=== PATIENT | female | born 1985 | race Caucasian/White ===

== ENCOUNTER 2019-09-07 00:46 | Outpatient (CLI) | payer MEDICAID ==
[~2019-09-07] VITALS: Ht 160 cm; Wt 65.7 kg
--- NOTE | 2019-09-07 00:55 | NUR ---
ELBERT MATT presented to unit via ambulatory from ED, accompanied by s.o., with c/o CONTRACTIONS. ELBERT MATT weighed, gowned, voided, and to bed. EFHM and TOCO applied, VS taken. ELBERT MATT oriented to bed controls, call light, TV, heat, and A/C controls.
[2019-09-07 01:13] VITALS: BP 125/63
[2019-09-07 01:17] VITALS: BP 125/63
[2019-09-07 02:00] VITALS: BP 125/63
[2019-09-07 02:04] LABS: BILIRUBIN,URINE NEGATIVE (NEGATIVE); CLARITY,URINE CLEAR; COLOR,URINE YELLOW; GLUCOSE, URINE (UA) NEGATIVE (NEGATIVE); KETONES,URINE NEGATIVE (NEGATIVE); LEUKOCYTE ESTERASE ,URINE NEGATIVE (NEGATIVE); NITRITE,URINE NEGATIVE (NEGATIVE); PROTEIN,URINE NEGATIVE (NEGATIVE)
[2019-09-07 02:18] LABS: BACTERIA,URINE TRACE /HPF; TRICHOMONAS,URINE FEW /HPF
[2019-09-07] MEDS ORDERED: metroNIDAZOLE 500 MG (FLAGYL) TAB ONE (02:34)
[2019-09-07] MEDS ORDERED: metroNIDAZOLE 500 MG (FLAGYL) TAB PO ONE (02:45)
[2019-09-07] MEDS ORDERED: METR500T PO (06:57)
--- NOTE | 2019-09-07 07:10 | NUR ---
Discharge packet given and explained, understanding voiced by pt and Pt ambulatory off unit at this time accompanied by s/o. no ss distress. 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
[2019-09-08] MEDS ORDERED: PREN-142 PO (03:48)
[2019-09-08] MEDS ORDERED: SERT50TA9 PO (03:48)
--- NOTE | 2019-09-10 08:23 | Physician Query-Final Dx ---
Clinic Account Progress/Dx Physician Query: Please give diagnosis Please include # weeks gestation Date of Service Sep 07, 2019 at 00:46 GEOFFREY BUTLER Sep 10, 2019 08:23
== END 2019-09-07 07:10 | disposition home or self-care (01) ==
LOC: WSo 00:46 → LDRP 00:47 → WSo 07:10
PROVIDERS: ATTEND Family Medicine
DX: O62.9 Abnormality of forces of labor, unspecified (principal); Z3A.00 Weeks of gestation of pregnancy not specified
CPT/HCPCS: 81000; 99214

== ENCOUNTER 2019-09-07 19:36 | Inpatient (IN) | payer MEDICAID ==
[2019-09-07] VITALS (35 sets, daily range): BP systolic 83–147; BP diastolic 41–79
[~2019-09-07] VITALS: Ht 160 cm; Wt 65.2 kg
[~2019-09-07 19:36] MED LIST: METR500T PO
--- NOTE | 2019-09-07 19:42 | NUR ---
ELBERT MATT presented to unit via ambulation from home/ED, accompanied by SO, with c/o CONTRACTIONS. ELBERT MATT weighed, gowned, voided, and to bed. EFHM and TOCO applied, VS taken. ELBERT MATT oriented to bed controls, call light, TV, heat, and A/C controls.
[2019-09-07] MEDS ORDERED: D5 LR IV SOLUTION 1,000 ML IV ONE (20:04)
[2019-09-07] MEDS ORDERED: AMPICILLIN FOR IV USE 2,000 MG VIAL ONE (20:05)
[2019-09-07] MEDS ORDERED: AMPICILLIN FOR IV USE 1,000 MG/VIAL ONE (20:05)
[2019-09-07] MEDS ORDERED: WATER (STERILE) FOR INJECTION 20 ML ONE (20:05)
[2019-09-07] MEDS ORDERED: WATER (STERILE) FOR INJECTION 10 ML ONE (20:05)
[2019-09-07] MEDS ORDERED: D5 LR IV SOLUTION 1,000 ML IV SCH (20:34)
[2019-09-07] MEDS ORDERED: AMPICILLIN FOR IV USE 2,000 MG in WATER (STERILE) FOR INJECTION 14.8 ML IV SCH (20:34)
[2019-09-07 20:40] LABS: BASOPHILS % (AUTO) 0 % (0-10); EOSINOPHILS # (AUTO) 0.1 10^3/uL (0.0-0.3); EOSINOPHILS % (AUTO) 0 % (0-10); HEMATOCRIT 33 % (35-52); LYMPHOCYTES # (AUTO) 2.5 X 10^3 (1.0-4.0); LYMPHOCYTES % (AUTO) 15 % (12-44); MEAN CORPUSCULAR HEMOGLOBIN 29 PG (25-34); MEAN CORPUSCULAR HGB CONC 34 G/DL (32-36); MEAN CORPUSCULAR VOLUME 87 FL (80-99); MEAN PLATELET VOLUME 11.3 FL (7.4-10.4); MONOCYTES % (AUTO) 6 % (0-12); NEUTROPHILS # (AUTO) 13.3 X 10^3 (1.8-7.8); NEUTROPHILS % (AUTO) 79 % (42-75); PLATELET COUNT 313 10^3/uL (130-400); RED CELL DISTRIBUTION WIDTH 13.4 % (10.0-14.5); WHITE BLOOD COUNT 16.9 10^3/uL (4.3-11.0)
[2019-09-07] MEDS ORDERED: fentaNYL 2 mcg/ml BUPIVA 0.125 100 ML ONE (20:44)
[2019-09-07] MEDS ORDERED: fentaNYL INJECTION 100 MCG/2 ML AMP ONE (20:51)
[2019-09-07] MEDS ORDERED: BUPIVACAINE 0.25% 30 ML (SENSORCAINE) VIAL ONE (20:51)
[2019-09-07 21:16] LABS: BILIRUBIN,URINE NEGATIVE (NEGATIVE); CLARITY,URINE CLEAR; COLOR,URINE YELLOW; GLUCOSE, URINE (UA) NEGATIVE (NEGATIVE); KETONES,URINE NEGATIVE (NEGATIVE); LEUKOCYTE ESTERASE ,URINE NEGATIVE (NEGATIVE); NITRITE,URINE NEGATIVE (NEGATIVE); PH,URINE 6.5 (5-9); PROTEIN,URINE NEGATIVE (NEGATIVE)
--- OUTSIDE RECORDS SUMMARY | 2019-09-07 21:30 | XMS REPORT ---
Author Author Renay MCDANIEL Organization [facility] Address [address] [place] [address] Care Team Providers Care Groundman/Lineman Name Role Phone TAWANDA MCDANIEL Unavailable PROBLEMS Unknown Problems ALLERGIES No Known Allergies ENCOUNTERS Encounter Location Date Diagnosis [facility] [address] [facility] [id number] [place] [address] 24 Oct, 2017 Flank pain R10.9 and Acute c ystitis without hematuria N30.00 IMMUNIZATIONS No Known Immunizations SOCIAL HISTORY Never Assessed REASON FOR VISIT N/V/D on . complaing of H/A et possible fever. also right flank pain sin ce tuesday. vivi, last menstural period was 3 weeks ago PLAN OF CARE Activity Details Follow Up prn Reason: VITAL SIGNS Height 63 in 2017-11-06 Weight 114.6 lbs 2017-11-06 Temperature 97.0 degrees Fahrenheit 2017-11-06 Heart Rate 74 bpm 2017-11-06 Respiratory Rate 18 2017-11-06 BMI 20.30 kg/m2 2017-11-06 Blood pressure systolic 108 mmHg 2017-11-06 Blood pressure diastolic 68 mmHg 2017-11-06 MEDICATIONS Medication Instructions Dosage Frequency Start Date End Date Duration S tatus Bactrim DS 800-160 MG Orally Twice a day 1 tablet 12h 5 days Active Zofran ODT 4 MG Orally Every 8 hours PRN 1 tablet on the tongue and allow to dissolve 5 days Active RESULTS No Results PROCEDURES Procedure Date Ordered Result Body Site URINALYSIS, AUTO, W/O SCOPE November 06, 2017 URINE CULTURE/COLONY COUNT November 06, 2017 INSTRUCTIONS MEDICATIONS ADMINISTERED No Known Medications
--- OUTSIDE RECORDS SUMMARY | 2019-09-07 21:30 | XMS REPORT | Continuity of Care Document ---
Author Organization Unknown Address Unknown Phone Unavailable Allergies Active Description Code Type Severity Reaction Onset Reported/Identified Relationship to Patient Clinical Status Yes No Known Drug Allergies [id number] Drug Allergy Unknown N/A 09/07/2019 Medications There is no data. Problems There is no data. Procedures There is no data. Results Test Result Range CULTURE, URINE - 11/06/17 14:25 CULTURE, URINE, ROUTINE SEE NOTE NRG QNATAL - 02/27/19 16:35 NUMBER OF FETUSES? 1 NRG ADVANCED MATERNAL AGE? NO NRG ABNORMAL EMILY? NO NRG ABNORMAL US? NO NRG PERSONAL/FAM HISTORY? NO NRG INTERPRETATION SEE NOTE NRG TRISOMY 21 (T21) Negative NRG TRISOMY 18 (T18) Negative NRG TRISOMY 13 (T13) Negative NRG Y CHROMOSOME Detected NRG Y CHR. INTERPRETATION SEE NOTE NRG SEX CHROMOSOME No aneuploidy NRG SEX CHROMOSOME INTERP SEE NOTE NRG MICRODELETION Not detected NRG MICRODELETION INTERP SEE NOTE NRG GESTATIONAL AGE(IN WEEKS) 12 NRG GESTATIONAL AGE (IN DAYS) 0 NRG FRACTION 10.02% NRG LABORATORY COMMENTS SEE NOTE NRG LIMITATIONS SEE NOTE NRG SPECIFICATIONS SEE NOTE NRG METHODOLOGY SEE NOTE NRG GC/CHLAMYDIA (SWAB OR URINE)-RAPID - 01/01 14:09 CHLAMYDIA TRACHOMATIS RNA, TMA NOT DETECTED NOT DETECTED NEISSERIA GONORRHOEAE RNA, TMA NOT DETECTED NOT DETECTED COMMENT NRG GLUCOSE KYRIE 1 HOUR - 06/11/19 17:26 GLUCOSE, POSTPRANDIAL/ 1 HOUR 98 mg/dL See Note: CULTURE, GROUP B STREP (VAGINAL) - 08/19 16:54 STREPTOCOCCUS, GROUP B CULTURE SEE NOTE NRG Complete urinalysis with reflex to cultu re - 09/07/19 01:00 Urine color determination YELLOW NRG Urine clarity determination CLEAR NR G Urine pH measurement by test strip 6.0 5-9 Specific gravity of urine by test strip <= 1.016-1.022 Urine protein assay by test strip, semi-quantitative NEGATIVE NEGATIVE Urine glucose detection by automated test strip NE GATIVE NEGATIVE Erythrocytes detection in urine sediment by light micr oscopy NEGATIVE NEGATIVE Urine ketones detection by automated test strip NE GATIVE NEGATIVE Urine nitrite detection by test strip NEGATIVE NEGATIVE Urine total bilirubin detection by test strip NEGA TIVE NEGATIVE Urine urobilinogen measurement by automated test strip (mass/volume) 0.2 mg/dL < = 1.0 Urine leukocyte esterase detection by dipstick NEG ATIVE NEGATIVE Automated urine sediment erythrocyte cou nt by microscopy (number/high power field) NONE NRG Automated urine sediment leukocyte count by microscopy (number/high power field) NONE NRG Bacteria detection in urine sediment by light microsco py TRACE NRG Squamous epithelial cells detection in u rine sediment by light microscopy 2-5 NRG Crystals detection in urine sediment by light microsco py NONE NRG Casts detection in urine sediment by light microscopy NONE NRG Mucus detection in urine sediment by light microscopy NEGATIVE NRG Complete urinalysis with reflex to culture NO NRG Urine Trichomonas species detection by light microscop y FEW NRG Complete blood count (CBC) with automate d white blood cell (WBC) differential - 09/07/19 20:20 Blood leukocytes automated count (number/volume) 16.9 10*3/uL 4.3-11.0 Blood erythrocytes automated count (number/volume) 3.74 10*6/uL 4.35-5.85 Venous blood hemoglobin measurement (mass/volume) 11.0 g/dL 11.5-16.0 Blood hematocrit (volume fraction) 33 % 35-52 Automated erythrocyte mean corpuscular volume 87 [ foz_us] 80-99 Automated erythrocyte mean corpuscular h emoglobin (mass per erythrocyte) 29 pg 25-34 Automated erythrocyte mean corpuscular h emoglobin concentration measurement (mass/volume) 34 g/dL 32-36 Automated erythrocyte distribution width ratio 13. 4 % 10.0- 14.5 Automated blood platelet count (count/volume) 313 10*3/uL 130-400 Automated blood platelet mean volume measurement 11.3 [foz_us] 7.4-10.4 Automated blood neutrophils/100 leukocytes 79 % 42-75 Automated blood lymphocytes/100 leukocytes 15 % 12-44 Blood monocytes/100 leukocytes 6 % 0-12 Automated blood eosinophils/100 leukocytes 0 % 0-10 Automated blood basophils/100 leukocytes 0 % 0-10 Blood neutrophils automated count (number/volume) 13.3 10*3 1.8-7.8 Blood lymphocytes automated count (number/volume) 2.5 10*3 1.0-4.0 Blood monocytes automated count (number/volume) 1. 0 10*3 0.0-1.0 Automated eosinophil count 0.1 10*3/uL 0 .0-0.3 Automated blood basophil count (count/volume) 0.0 10*3/uL 0.0-0.1 Encounters ACCT No. Visit Date/Time Discharge Status Pt. Type Provider Facility Loc./Unit Complaint [id number] 09/03/2019 16:20:00 09/03/2019 23:59: 59 CLS Outpatient NURA HACKETT [facility] [id number] 08/20/2019 16:20:00 Document Registration [id number] 06/11/2019 16:20:00 Document Registration [id number] 03/23/2019 13:40:00 Document Registration [id number] 02/27/2019 15:30:00 Document Registration [id number] 11/06/2017 14:05:00 Document Registration [id number] 09/07/2019 00:46:00 020 07:10:00 DIS Outpatient JLUIS GRULLON MD [facility] WSo CONTRACTIONS [id number] 09/07/2019 20:06:[address] Inpatient JLUIS GRULLON MD [facility] LDRP LABOR
[2019-09-07] MEDS ORDERED: fentaNYL 2 mcg/ml BUPIVA 0.125 100 ML IV SCH (21:32)
[2019-09-07] MEDS ORDERED: LACTATED RINGERS 1,000 ML IV ONE (21:32)
[2019-09-07 21:42] LABS: AMORPHOUS SEDIMENT,UR RARE AMOR URATES /LPF; BACTERIA,URINE MODERATE /HPF
[2019-09-07] MEDS ORDERED: CATHETER FLUSH 10 ML SYR IV PRN (21:45)
[2019-09-07] MEDS ORDERED: EPIDURAL (fentaNYL 2 MCG/ML BUPIVA 0.125%)100 ML BAG EPI SCH (21:45)
[2019-09-07] MEDS ORDERED: NALOXONE 0.4 MG/ML 1 ML (NARCAN) VIAL IV PRN (21:45)
[2019-09-07] MEDS ORDERED: CATHETER FLUSH 10 ML SYR IV SCH (22:00)
--- NOTE | 2019-09-07 22:41 | History & Physical-OB ---
OB - Chief Complaint & HPI Date/Time Date of Admission: Date of Admission: Sep 07, 2019 at 20:06 Date seen by a Provider: Sep 07, 2019 Time Seen by a Provider: 22:30 Chief Complaint/History OB-Reason for Admission/Chief: Onset of Labor Hx : 1 Hx Para: 0 Expected Date of Delivery: Sep 11, 2019 Gestational Age in Weeks: 39 Gestational Age in Days: 3 Admission Nurse Assessment Rev: Yes History of Labs GBS positive vaginal/anal swab at 36 weeks Allergies and Home Medications Allergies Coded Allergies: No Known Drug Allergies (Unverified , 09/07/19) Home Medications Metronidazole 500 Mg Tablet, 500 MG PO BID Prescribed by: DEBORAH HULL on 09/07/19 0657 Patient Home Medication List Home Medication List Reviewed: Yes OB - History Hx of Present Care: Yes Ultrasounds: Normal mid trimester US Obstetrical Complications: None Medical Complications: None Patient Past Medical History no chronic medical problems Social History/Family History 2nd Hand Smoke Exposure: No OB - Admission Exam Physical Exam HEENT: Moist Membranes Heart: Rhythm Normal Lungs: Clear Abdomen: Gravid Cervical Dilatation: 5cm Effacement: 75% Station: -3 Membranes: Intact Accelerations: Accelerations Present Decelerations: Variable Decelerations Short Term Variability: Present Patcher Bowling Ball Variability: Average (6-25) Contractions on Admission: < 5 Minutes Apart Intensity: Moderate Labs Laboratory Tests Test 09/07/19 19:45 09/07/19 20:20 Range/Units Urine Color YELLOW Urine Clarity CLEAR Urine pH 6.5 5-9 Urine Specific [place] <=1.005 1.016-1.022 Urine Protein NEGATIVE NEGATIVE Urine Glucose (UA) NEGATIVE NEGATIVE Urine Ketones NEGATIVE NEGATIVE Urine Nitrite NEGATIVE NEGATIVE Urine Bilirubin NEGATIVE NEGATIVE Urine Urobilinogen 0.2 < = 1.0 MG/DL Urine Leukocyte Esterase NEGATIVE NEGATIVE Urine RBC (Auto) 3+ H NEGATIVE Urine RBC 2-5 H /HPF Urine WBC 2-5 /HPF Urine Squamous Epithelial Cells 2-5 /HPF Urine Crystals PRESENT H /LPF Urine Amorphous Sediment RARE BERNIE URATES H /LPF Urine Bacteria MODERATE H /HPF Urine Casts NONE /LPF Urine Mucus NEGATIVE /LPF Urine Culture Indicated YES White Blood Count 16.9 H 4.3-11.0 10^3/uL Red Blood Count 3.74 L 4.35-5.85 10^6/uL Hemoglobin 11.0 L 11.5-16.0 G/DL Hematocrit 33 L 35-52 % Mean Corpuscular Volume 87 80-99 FL Mean Corpuscular Hemoglobin 29 25-34 PG Mean Corpuscular Hemoglobin Concent 34 32-36 G/DL Red Cell Distribution Width 13.4 10.0-14.5 % Platelet Count 313 130-400 10^3/uL Mean Platelet Volume 11.3 H 7.4-10.4 FL Neutrophils (%) (Auto) 79 H 42-75 % Lymphocytes (%) (Auto) 15 12-44 % Monocytes (%) (Auto) 6 0-12 % Eosinophils (%) (Auto) 0 0-10 % Basophils (%) (Auto) 0 0-10 % Neutrophils # (Auto) 13.3 H 1.8-7.8 X 10^3 Lymphocytes # (Auto) 2.5 1.0-4.0 X 10^3 Monocytes # (Auto) 1.0 0.0-1.0 X 10^3 Eosinophils # (Auto) 0.1 0.0-0.3 10^3/uL Basophils # (Auto) 0.0 0.0-0.1 10^3/uL OB - Assessment/Plan/Diagnosis Assessment Assessment: active labor (at 39 weeks) Admission Dx 1. IUP at term 39 weeks gestation 2. GBS positive vaginal/anal swab Admission Status: Inpatient Order (span 2 midnights) Reason for Inpatient Admission: L&D Plan Plan: Expectant Management Induction Method: AROM Other Plan 1. Epidural per anesthesia -pitocin if needed -Ampicillin protochol for GBS JLUIS GRULLON MD Sep 07, 2019 22:41
[2019-09-07] MEDS ORDERED: OXYTOCIN PRE-MIX DRIP 500 ML IV ONE (23:21)
[2019-09-07] MEDS ORDERED: OXYTOCIN PRE-MIX DRIP 500 ML IV SCH (23:31)
[2019-09-08] VITALS (15 sets, daily range): BP systolic 103–146; BP diastolic 55–78
[2019-09-08] MEDS ORDERED: MEPIVACAINE (CARBOCAINE) 2% 50 ML VIAL ONE (00:19)
[2019-09-08] MEDS ORDERED: AMPICILLIN FOR IV USE 1,000 MG in WATER (STERILE) FOR INJECTION 7.4 ML IV SCH (00:45)
[2019-09-08] MEDS ORDERED: OXYTOCIN PRE-MIX DRIP 500 ML IV SCH (01:07)
--- NOTE | 2019-09-08 01:07 | OB Labor & Delivery Record ---
L&D History Date of Service Date of Service: Sep 08, 2019 History Expected Date of Delivery: Sep 11, 2019 Gestational Age in Weeks: 39 Hx : 1 Hx Para: 1 Complications Events: Routine care Operative Indications (Cesarea: N/A-Vaginal Delivery Intrapartal Events: None Other Complications GBS positive treated with 2 doses of ampicillin L&D Stage1 Stage One Onset of Labor - Date: Sep 08, 2019 Monitors and Tracing Monitor Mode: Internal Monitor Accelerations: Uniform Monitor Decelerations: Variable Station: -3 Barrel Raiser Variability: Average (6-10) Short Term Variability: Present Presentation: Vertex Vital Signs VS - Last 72 Hours, by Label 09/07/19 19:58 Temp 36.1 Pulse 100 Resp 18 Pulse Ox 100 O2 Delivery Room Air Signs of Distress by FHT Signs of Distress no Rupture of Membranes Spontaneous Ruture of Membrane: No Amniotic Membrane Rupture Time: 22:15 Amniotic Membrane Fluid Desc.: Clear Induction/Anesthesia Epidural Cath Placement - Time: 2108 L&D Stage2 Stage Two Stage II Date: Sep 08, 2019 Stage II Time: 00:41 Monitors and Tracing Monitor Mode: Internal Monitor Accelerations: Uniform Monitor Decelerations: Variable Barrel Raiser Variability: Average (6-10) Short Term Variability: Present Position: Left Occiput Anterior Presentation: Vertex Signs of Distress by FHT Signs of Distress no Cord Descript/Complications Cord Vessel Description: 3 Vessels Delivery Type Infant Delivery Method: Spontaneous Vaginal Anterior Shoulder: Left Episiotomy/Perineal Laceration Laceraction(s)/Extensions: Yes Episiotomy Description: Midline, Periurethral Extnsion/lac (Left) Sutures Used: Vicryl Condition of Delivery 1 minute Comment: 8 5 minute Comment: 9 Condition of Infant Condition of Infant: Living Exam: No Observed Abnormalities Resuscitation Resuscitation: N/A - Spontaneous Resp L&D Stage3 Stage Three Stage III Date: Sep 08, 2019 Stage III Time: 00:45 Pictocin Pitocin ml/hr: 125 Placenta Delivery Placenta Delivery: Spontaneous Delivery Summary Summary Estimated blood loss (mL): 250 Condition of Delivery Examined: Cervix Examined Post Hemorrhage: No Intervention Required none JLUIS GRULLON MD Sep 08, 2019 01:07
[2019-09-08] MEDS ORDERED: WITCH HAZEL(TUCKS) 40 EA JAR TOP PRN (01:15)
[2019-09-08] MEDS ORDERED: TETANUS,DIPTH,PERTUSS P/F (BOOSTRIX) 0.5 ML VIAL IM ONE (01:15)
[2019-09-08] MEDS ORDERED: BENZOCAINE/MENTHOL (DERMOPLAST) 60 ML CAN TP PRN (01:15)
[2019-09-08] MEDS ORDERED: MEASLES,MUMPS,RUBELLA 1 EA INJ SQ ONE (01:15)
[2019-09-08] MEDS ORDERED: PREN-142 PO (03:48)
[2019-09-08] MEDS ORDERED: SERT50TA9 PO (03:48)
[2019-09-08] MEDS ORDERED: CATHETER FLUSH 10 ML SYR IV SCH (06:00)
[2019-09-08] MEDS: IBUPROFEN 600 MG (MOTRIN) TAB PO SCH ×3 (06:18→17:56)
[2019-09-08] MEDS: ACETAMINOPHEN 500 MG TAB (TYLENOL) PO SCH ×3 (06:18→20:53)
[2019-09-08] MEDS: DOCUSATE SODIUM 100 MG (COLACE) CAP PO SCH ×2 (08:45→20:53)
--- NOTE | 2019-09-08 11:25 | Anesthesia-Regional Post-Op ---
Regional Patient Condition Mental Status: Alert, Oriented x3 Circulation: Same as Pre-Op Headache: Absent Sensation: Full Recovery Motor Block: Absent Post Op Complications Complications None Follow Up Care/Instructions Patient Instructions None needed. Anesthesia/Patient Condition Patient is doing well, no complaints, stable vital signs, no apparent adverse anesthesia problems. No complications reported per nursing. D/C home per [facility] Criteria: No ISRAEL RODNEY CRNA Sep 08, 2019 11:25
[2019-09-09] MEDS: IBUPROFEN 600 MG (MOTRIN) TAB PO SCH ×3 (00:04→12:25)
[2019-09-09 03:20] VITALS: BP 101/64
[2019-09-09] MEDS: ACETAMINOPHEN 500 MG TAB (TYLENOL) PO SCH ×2 (03:20→08:58)
[2019-09-09 05:39] LABS: BASOPHILS % (AUTO) 0 % (0-10); EOSINOPHILS # (AUTO) 0.2 10^3/uL (0.0-0.3); EOSINOPHILS % (AUTO) 2 % (0-10); HEMATOCRIT 30 % (35-52); HEMOGLOBIN 9.6 G/DL (11.5-16.0); LYMPHOCYTES # (AUTO) 3.5 X 10^3 (1.0-4.0); LYMPHOCYTES % (AUTO) 32 % (12-44); MEAN CORPUSCULAR HEMOGLOBIN 29 PG (25-34); MEAN CORPUSCULAR HGB CONC 32 G/DL (32-36); MEAN CORPUSCULAR VOLUME 89 FL (80-99); MEAN PLATELET VOLUME 10.8 FL (7.4-10.4); MONOCYTES # (AUTO) 0.8 X 10^3 (0.0-1.0); MONOCYTES % (AUTO) 7 % (0-12); NEUTROPHILS # (AUTO) 6.6 X 10^3 (1.8-7.8); NEUTROPHILS % (AUTO) 60 % (42-75); PLATELET COUNT 285 10^3/uL (130-400); RED CELL DISTRIBUTION WIDTH 13.7 % (10.0-14.5); WHITE BLOOD COUNT 11.1 10^3/uL (4.3-11.0)
--- NOTE | 2019-09-09 08:05 | Discharge Inst-Women's Service ---
Discharge Inst-Women's Serv Depart Medication/Instructions New, Converted or Re-Newed RX: Other Instructions May take ibuprofen 200 mg tablets and take 2 or 3 every 6 hours as needed for cramps. Also continue with Flagyl 500 mg twice daily to complete a full 7 days. Problems Reviewed?: Yes Consults/Follow Up Additional Follow Up: Yes (Dr Clark in 6 weeks.) Activity Activity: Activity as Tolerated Driving Instructions: No Driving for 1 Week NO SMOKING: NO SMOKING Nothing Inside Vagina: No Alleene (for 6 weeks.) Diet Discharge Diet: Regular Diet Return to The Hospital For: as below Symptoms to Report to : Bleeding Excessive, Pain Increased, Fever Over 101 Degrees F, Vaginal Discharge Foul For Any Problems or Questions: Contact Your Physician JLUIS GRULLON MD Sep 09, 2019 08:05
--- NOTE | 2019-09-09 08:12 | Discharge Summary ---
Diagnosis/Chief Complaint Date of Admission Sep 07, 2019 at 20:06 Date of Discharge September 09, 2019 Admission Diagnosis Admission Diagnosis 1. Intrauterine at 39 weeks gestation 2. Positive GBS status prenatally Discharge Diagnosis 1. Intrauterine at 39 weeks gestation 2. Positive GBS status prenatally Chief Complaint/HPI Chief Complaint/HPI 33-year-old 1 now para 1 who initially presented to labor and delivery during the late p.m. of September 07, 2019 in active labor. Patient was at 39 weeks 3 days gestation and dilated to 4-5 cm upon presentation. She had received her care through [facility] Dr. Clark as her range ecologist. Her group B strep status performed at 36 weeks vaginally/anal was noted to be positive. Discharge Summary-OBS Procedures 1. Epidural per anesthesia 2. Spontaneous vaginal delivery 3. Repair of midline episiotomy Discharge Physical Examination Allergies: Coded Allergies: No Known Drug Allergies (Unverified , 09/07/19) Vitals & I&Os Vital Sign - Last 12Hours Date Time Temp Pulse Resp B/P (MAP) Pulse Ox O2 Delivery O2 Flow Rate FiO2 09/09/19 03:20 36.6 79 16 101/64 (76) 98 Room Air 09/08/19 00:30 15.00 General Appearance: No Acute Distress Respiratory: Clear to Auscultation Cardiovascular: Regular Rate Abdominal: Soft (With uterus firm) Skin: No Rashes Neuro: Normal Gait Hospital Course Was the Problem List Reviewed?: Yes Patient was admitted during the evening of September 07, 2019 in active labor. She was noted to be dilated to 4-5 cm at that time. She had received ampicillin 2 g bolus on admission due to the GBS positive status. She received a second dose 6 hours later at the time when she was delivering. Epidural was given by akilah boothe and she tolerated well and gained excellent pain relief. monitor was closely observed. At one point the Pitocin was started but due to variable decelerations the Pitocin was stopped. She underwent artificial rupture of membranes with placement of scalp electrode at 6 cm dilation. Fluid was noted to be clear. She ultimately went on to completion and delivered a term viable male with Apgars of 8 at 1 minute and 9 at 5 minutes. There was a midline episiotomy that was repaired with 3-0 Vicryl. Estimated blood loss at 250 mL. Following delivery she underwent routine care orders. She had no complications during the remainder of hospital stay. She was given alternating Tylenol and ibuprofen for pain relief. She had pre-deliver hemoglobin of 11.0 and in the morning of September 08 noted to be 9.6. Patient was felt eager for dismissal to home. She was tolerating regular diet. She denied any shortness of breath or leg pain. All questions were answered and she will follow up with Dr. Clark in 6 weeks. Labs Laboratory Tests 09/09/19 05:28: White Blood Count 11.1H, Red Blood Count 3.33L, Hemoglobin 9.6L, Hematocrit 30L, Mean Corpuscular Volume 89, Mean Corpuscular Hemoglobin 29, Mean Corpuscular Hemoglobin Concent 32, Red Cell Distribution Width 13.7, Platelet Count 285, Mean Platelet Volume 10.8H, Neutrophils (%) (Auto) 60, Lymphocytes (%) (Auto) 32, Monocytes (%) (Auto) 7, Eosinophils (%) (Auto) 2, Basophils (%) (Auto) 0, Neutrophils # (Auto) 6.6, Lymphocytes # (Auto) 3.5, Monocytes # (Auto) 0.8, Eosinophils # (Auto) 0.2, Basophils # (Auto) 0.0 Discharge Instructions to patient/family Please see electronic discharge instructions given to patient. Discharge Medications Reviewed and agree with Discharge Medication list on patient's Discharge Instruction sheet Clinical Quality Measures DVT/VTE Risk/Contraindication: Risk Factor Score Per Nursin RFS Level Per Nursing on Admit: 2=Moderate JLUIS GRULLON MD Sep 09, 2019 08:12
[2019-09-09] MEDS: DOCUSATE SODIUM 100 MG (COLACE) CAP PO SCH (08:57)
[2019-09-09 08:59] VITALS: BP 109/57
--- NOTE | 2019-09-09 11:51 | NUR ---
dismissal instructions given, verbalizes understanding. reviewed dismissal instructions. instructed pt to schedule 6 week post appointment with Dr. heaton. signature page signed, placed on chart.
[2019-09-09 12:30] VITALS: BP 109/57
--- NOTE | 2019-09-09 12:30 | NUR ---
DISMISSED VIA W/C WITH TO FAMILY CAR IN STABLE CONDITION ACC BY Jeaneth AND SYMONE LENZ RN.
== END 2019-09-09 12:30 | disposition home or self-care (01) | DRG 807 ==
LOC: WSo 19:36 → LDRP 19:36 → WSo 20:06 → LDRP 09-08 03:30
PROVIDERS: ADMIT Family Medicine; ATTEND Family Medicine
PROC: 10E0XZZ Delivery of Products of Conception, External Approach (ICD-10-PCS; principal; 2019-09-08)
PROC: 0W8NXZZ Division of Female Perineum, External Approach (ICD-10-PCS; 2019-09-08)
PROC: 0UQMXZZ Repair Vulva, External Approach (ICD-10-PCS; 2019-09-08)
DX: O99.824 Streptococcus B carrier state complicating childbirth (principal); Z37.0 Single live birth; O71.82 Other specified trauma to perineum and vulva; O99.334 Smoking (tobacco) complicating childbirth; F17.210 Nicotine dependence, cigarettes, uncomplicated; Z3A.39 39 weeks gestation of pregnancy; Z23 Encounter for immunization
CPT/HCPCS: 36415; 81000; 85025; 86850; 86900; 86901; 87088; 90707; 99212

== ENCOUNTER 2022-06-11 10:11 | Outpatient (CLI) | payer MEDICAID ==
[~2022-06-11] VITALS: Ht 160 cm; Wt 63.0 kg
[~2022-06-11 10:11] MED LIST changes: +PREN-142 PO; +SERT-413 PO
[2022-06-11 10:38] VITALS: BP 113/64
[2022-06-11 10:56] LABS: BILIRUBIN,URINE NEGATIVE (NEGATIVE); CLARITY,URINE CLEAR; COLOR,URINE YELLOW; GLUCOSE, URINE (UA) NEGATIVE (NEGATIVE); KETONES,URINE NEGATIVE (NEGATIVE); LEUKOCYTE ESTERASE ,URINE TRACE (NEGATIVE); NITRITE,URINE NEGATIVE (NEGATIVE); PROTEIN,URINE NEGATIVE (NEGATIVE)
[2022-06-11 11:23] LABS: BACTERIA,URINE FEW /HPF; RBC,URINE RARE /HPF; WBC,URINE 0-2 /HPF
--- NOTE | 2022-06-11 13:23 | Diagnostic Imaging Report ---
INDICATION: Vaginal bleeding. Patient has history of low-lying placenta. No prior studies are available for comparison. FINDINGS: There is a single live fetus in a cephalic presentation. heart rate was recorded at 142 BPM. Placenta is posterior. No previa is identified. Placental tip to the internal cervical os distance is 3.3 cm. Amniotic fluid index is normal at 18 cm. Cervical length is 4.3 cm. No retroplacental fluid collection or abruption is seen. IMPRESSION: Unremarkable limited obstetrical ultrasound. No complicating features are detected. Dictated by: Dictated on workstation # [id number]
[2022-06-11] MEDS ORDERED: LACTATED RINGERS 1,000 ML IV ONE (14:15)
[2022-06-11 14:21] VITALS: BP 114/53
[2022-06-11 14:55] VITALS: BP 114/53
== END 2022-06-11 14:55 | disposition home or self-care (01) ==
LOC: LDRP 10:11 → WSo 10:11
PROVIDERS: ATTEND Family Medicine
DX: O46.93 Antepartum hemorrhage, unspecified, third trimester (principal); Z3A.33 33 weeks gestation of pregnancy
CPT/HCPCS: 76815; 81000; 87077; 87088

== ENCOUNTER 2022-07-26 07:23 | Outpatient (CLI) | payer MEDICAID ==
[~2022-07-26] VITALS: Ht 160 cm; Wt 63.8 kg
[2022-07-26 08:08] LABS: BILIRUBIN,URINE NEGATIVE (NEGATIVE); CLARITY,URINE CLEAR; COLOR,URINE YELLOW; GLUCOSE, URINE (UA) NEGATIVE (NEGATIVE); KETONES,URINE NEGATIVE (NEGATIVE); LEUKOCYTE ESTERASE ,URINE NEGATIVE (NEGATIVE); NITRITE,URINE NEGATIVE (NEGATIVE); PH,URINE 7.5 (5-9); PROTEIN,URINE NEGATIVE (NEGATIVE)
[2022-07-26 08:15] VITALS: BP 124/62
[2022-07-26 08:19] LABS: AMORPHOUS SEDIMENT,UR MOD AMOR PHOSPHATE /LPF; BACTERIA,URINE FEW /HPF; RBC,URINE 0-2 /HPF; SQUAMOUS EPITHELIAL CELL,UR 0-2 /HPF; WBC,URINE RARE /HPF
--- NOTE | 2022-07-27 10:00 | Physician Query-Final Dx ---
Clinic Account Progress/Dx Physician Query: Please give diagnosis Please include # weeks gestation Date of Service Jul 26, 2022 at 07:23 WHEAT,MayJul 27, 2022 10:00
== END 2022-07-26 08:57 | disposition left against medical advice (07) ==
LOC: WSo 07:23 → LDRP 07:23 → WSo 08:57
PROVIDERS: ATTEND Family Medicine
DX: O62.9 Abnormality of forces of labor, unspecified (principal); Z3A.00 Weeks of gestation of pregnancy not specified
CPT/HCPCS: 81000; 87088; G0463; 99213

== ENCOUNTER → 2022-08-27 | Outpatient (CLI) | payer MEDICAID ==
--- NOTE | 2022-08-27 16:54 | Diagnostic Imaging Report ---
INDICATION: Right hand pain status post injury. COMPARISON: None. FINDINGS: 3 views of the right hand were obtained and show no fractures, dislocations, or other acute bony abnormalities. Joint spaces are well maintained throughout. The soft tissues appear unremarkable. No unexpected radiopaque foreign bodies are identified. IMPRESSION: Unremarkable radiographic exam of the right hand. Dictated by: Dictated on workstation # [id number]
== END ==
LOC: RAD FS 16:02
PROVIDERS: ATTEND Registered Nurse Community Health
DX: S69.91XA Unspecified injury of right wrist, hand and finger(s), initial encounter (principal); X58.XXXA Exposure to other specified factors, initial encounter
CPT/HCPCS: 73130